=== PATIENT | female | born 1970 | race Two or more races ===

== ENCOUNTER → 2024-12-28 | Day surgery (SDC) | payer OTHER ==
[2024-12-21 11:56] VITALS: BP 140/89
[~2024-12-28] VITALS: Ht 154.9 cm; Wt 84.8 kg
[~2024-12-28] MED LIST: ATACAND HCT 161 EACH PO; BUPIVACAINE HCL 30 ML VIAL IJ ONE; CEFTRIAXONE SODIUM 2,000 MG VIAL IV ONE; CELECOXIB200 MG PO; DIBUCAINE 30 GM TUBE RECTAL ONE; HEMOSTATIC MATRIX 1 KIT KIT TOP ONE; INTESTINEX680 M1 PO; LEVOTHYROXINE25 MCG PO; LIDOCAINE HCL 1%/EPINEPHRINE 20ML VIAL IJ ONE; METRONIDAZOLE/SODIUM CHLORIDE 500 MG/100 ML PIGGYBACK IV ONE; MIRAPEX ER1.5 MG PO; NEURONTIN300 MG PO; PERCOCET 5-3251 EACH PO; POVIDONE-IODINE 118 ML BOTT TOP ONE; TRAZODONE HCL50 MG PO
== END | disposition home or self-care (01) ==
LOC: ADM 12-21 11:30 → CIR.AMB 09:04
PROVIDERS: ATTEND Surgery
DX: K60.30 Anal fistula, unspecified (principal); K62.9 Disease of anus and rectum, unspecified; K62.5 Hemorrhage of anus and rectum; M19.90 Unspecified osteoarthritis, unspecified site; J45.909 Unspecified asthma, uncomplicated; J32.9 Chronic sinusitis, unspecified

== ENCOUNTER 2025-08-09 07:00 | Day surgery (SDC) | payer OTHER ==
[2025-08-03 09:37] VITALS: BP 134/82
[~2025-08-09] VITALS: Ht 154.9 cm; Wt 85.3 kg
[~2025-08-09 07:00] MED LIST changes: +ATACAND HCT 321 EACH PO; -BUPIVACAINE HCL 30 ML VIAL IJ ONE; -CEFTRIAXONE SODIUM 2,000 MG VIAL IV ONE; -DIBUCAINE 30 GM TUBE RECTAL ONE; -HEMOSTATIC MATRIX 1 KIT KIT TOP ONE; -LIDOCAINE HCL 1%/EPINEPHRINE 20ML VIAL IJ ONE; -METRONIDAZOLE/SODIUM CHLORIDE 500 MG/100 ML PIGGYBACK IV ONE; -POVIDONE-IODINE 118 ML BOTT TOP ONE; +PROAIR RESPICL90 MCG IH
[2025-08-09] MEDS ORDERED: CEFTRIAXONE SODIUM 2,000 MG VIAL ONE (08:31)
[2025-08-09] MEDS ORDERED: METRONIDAZOLE/SODIUM CHLORIDE 500 MG/100 ML PIGGYBACK IV ONE (08:31)
[2025-08-09] MEDS ORDERED: LIDOCAINE HCL 1%/EPINEPHRINE 20ML VIAL IJ ONE (09:16)
[2025-08-09] MEDS ORDERED: POVIDONE-IODINE 118 ML BOTT TOP ONE (09:16)
[2025-08-09] MEDS ORDERED: BUPIVACAINE HCL/MPF 0.5% 30ML VIAL ONE (09:16)
[2025-08-09] MEDS ORDERED: DIBUCAINE 30 GM TUBE ONE (09:16)
[2025-08-09] MEDS ORDERED: HEMOSTATIC MATRIX 1 KIT KIT TOP ONE (09:16)
[2025-08-09] MEDS ORDERED: INTESTINEX680 M1 PO (12:27)
[2025-08-09] MEDS ORDERED: NEURONTIN300 MG PO (12:27)
[2025-08-09] MEDS ORDERED: CELECOXIB200 MG PO (12:27)
[2025-08-09] MEDS ORDERED: PERCOCET 5-3251 EACH PO (12:27)
[2025-08-09] MEDS ORDERED: HIBICLENS118 ML TOP (12:28)
== END 2025-08-09 15:05 | disposition home or self-care (01) ==
LOC: CIR.AMB 07:00
PROVIDERS: ATTEND Surgery
DX: R15.9 Full incontinence of feces (principal); K60.321 Anal fistula, complex, initial; K62.5 Hemorrhage of anus and rectum; K62.3 Rectal prolapse